=== PATIENT | female | born 1995 | race Caucasian/White ===

== ENCOUNTER 2016-06-25 01:58 | Emergency (ER) | payer OTHER, BC ==
[~2016-06-25] VITALS: Ht 165.1 cm; Wt 93.2 kg
[~2016-06-25 01:58] MED LIST: LEXAPRO 10MG10 MG PO; MAG-OX 400400 MG/TAB PO; MELATONIN0.3 MG PO; METHAVER 109 M1 EACH PO; RELPAX 40MG TAB40 MG PO; TOPAMAX 25MG25 M1 PO; TOPAMAX200 MG; VITAMIN D32000 I1 PO; ZOFRAN 4MG T4 MG/TAB PO
[2016-06-25 02:01] VITALS: TEMP 97.7
[2016-06-25] MEDS ORDERED: PREDNISONE20 MG PO (02:21)
[2016-06-25] MEDS ORDERED: EPIPEN 2-PAK1 MG/ML IM (04:08)
[2016-06-25 04:25] VITALS: BP 130/71; PULSE 95
== END 2016-06-25 04:25 | disposition home or self-care (01) ==
LOC: COL.ER 01:58
DX: T78.40XA Allergy, unspecified, initial encounter (principal); R22.0 Localized swelling, mass and lump, head
CPT/HCPCS: J1200; J2060; J7040; J7512

== ENCOUNTER 2016-07-04 21:09 | Emergency (ER) | payer OTHER, BC ==
[~2016-07-04] VITALS: Ht 162.6 cm; Wt 94.1 kg
[~2016-07-04 21:09] MED LIST changes: +EPIPEN 2-PAK1 MG/ML IM; +PREDNISONE20 MG PO
[2016-07-04 21:13] VITALS: TEMP 98.1
[2016-07-04] MEDS ORDERED: PREDNISONE20 MG PO (22:43)
[2016-07-04 22:59] VITALS: BP 130/90; PULSE 99
== END 2016-07-04 23:00 | disposition home or self-care (01) ==
LOC: COL.ER 21:09
DX: T78.40XA Allergy, unspecified, initial encounter (principal); R11.0 Nausea; R49.0 Dysphonia
CPT/HCPCS: J1200; J2405; J2930

== ENCOUNTER → 2017-02-15 | Outpatient (CLI) | payer OTHER, BC | LOC: COL.RAD 13:19 | DX: S09.90XA Unspecified injury of head, initial encounter (principal) ==